=== PATIENT | female | born 1965 | race Caucasian/White ===

== ENCOUNTER → 2018-12-31 | Outpatient (CLI) | payer OTHER ==
--- NOTE | 2019-01-02 17:53 | RAD ---
Study: 2-D digital mammogram-bilateral History: Routine screening. Technique: Bilateral digital mammographic routine views were obtained with CAD - computer aided detection. Comparison: None. Findings: Breast Tissue Density B :The breast tissue is composed of mixed fatty and fibroglandular tissue. Within the upper/outer aspect of the right breast, 10-11 o'clock location approximately 8 to 8.5 cm from the nipple are two adjacent focal asymmetries/masses that warrant further evaluation with CC and MLO spot compression views with the potential for ultrasound given no comparison studies to determine stability. Background nodularity of both breasts without additional concerning finding. No suspicious microcalcifications or architectural distortion. Impression: Two adjacent focal asymmetry/masses within the upper/outer right breast, as detailed above, warranting further evaluation with CC and MLO spot compression views with the potential for ultrasound. BI-RADS Category 0: Incomplete: Need additional imaging evaluation. "Our facility is accredited by the [employer] Mammography [employer]."
== END | disposition home or self-care (01) ==
LOC: MAMMO 14:55
PROVIDERS: ATTEND Family Medicine
DX: Z12.31 Encounter for screening mammogram for malignant neoplasm of breast (principal)
CPT/HCPCS: 77067

== ENCOUNTER → 2019-01-14 | Outpatient (CLI) | payer OTHER ==
--- NOTE | 2019-01-15 19:12 | RAD ---
DATE: 01/14/2019 EXAM: DIGITAL DIAGNOSTIC RT, BREAST RIGHT HISTORY: Abnormal mammogram COMPARISON: 12/31/2018 right unilateral diagnostic mammogram This study was interpreted with the benefit of Computerized Aided Detection (CAD). Breast Density: SCATTERED The breast parenchyma shows scattered fibroglandular densities. Breast parenchyma level B. FINDINGS: Spot compression of the right upper outer breast masses was performed. These persist on spot compression imaging. Limited ultrasound examination of the right upper-outer breast was performed. At the 10:00 region 7 cm and 8 cm from nipple, there are 2 septated cystic structure which measures 0.6 cm x 5 cm x 0.34 cm tall. Additional structure approximately 7 cm from nipple is also present IMPRESSION: Indeterminate cystic-appearing lesions. BI-RADS CATEGORY: 3 PROBABLY BENIGN FINDING(S)-SHORT INTERVAL FOLLOW-UP SUGGESTED RECOMMENDED FOLLOW-UP: 6M 6 MONTH FOLLOW-UP. Six-month mammographic follow-up recommended. Ultrasound may be needed at that time. PQRS compliance statement: Patient information was entered into a reminder system with a target due date for the next mammogram. Mammography is a sensitive method for finding small breast cancers, but it does not detect them all and is not a substitute for careful clinical examination. A negative mammogram does not negate a clinically suspicious finding and should not result in delay in biopsying a clinically suspicious abnormality. "Our facility is accredited by the [employer] Mammography [employer]."
== END | disposition home or self-care (01) ==
LOC: MAMMO 10:20
PROVIDERS: ATTEND Family Medicine
DX: R92.8 Other abnormal and inconclusive findings on diagnostic imaging of breast (principal)
CPT/HCPCS: 76641; 77065